=== PATIENT | female | born 1965 | race Two or more races ===

== ENCOUNTER 2016-12-22 07:52 | Emergency (ER) | payer OTHER ==
[2016-12-22] MEDS ORDERED: ALBUTEROL/IPRATROPIUM 2.5/0.5 MG 3 ML/EACH DOSE ONE (08:46)
--- NOTE | 2016-12-22 09:38 | RAD ---
CHEST 2 VIEWS HISTORY: Cough. Frontal and lateral chest radiographs dated 12/22/2016.. COMPARISON: None. FINDINGS: FOCAL AIRSPACE OPACITY: No gross airspace consolidation. PLEURAL EFFUSION: None. CARDIOMEDIASTINAL SILHOUETTE: Nonenlarged. PNEUMOTHORAX: None identified. OSSEOUS STRUCTURES: No grossly destructive lesions. IMPRESSION: No acute cardiopulmonary process noted.
[2016-12-22] MEDS ORDERED: IBUPROFEN 600 MG TABLET ONE (10:00)
== END 2016-12-22 10:09 | disposition home or self-care (01) ==
LOC: ED 07:52
DX: R05 Cough (principal); R07.89 Other chest pain; E11.9 Type 2 diabetes mellitus without complications; J45.909 Unspecified asthma, uncomplicated; Z79.84 Long term (current) use of oral hypoglycemic drugs; Z79.82 Long term (current) use of aspirin; Z79.51 Long term (current) use of inhaled steroids; Z79.899 Other long term (current) drug therapy
CPT/HCPCS: 71020; 94640; 99283 ×2; A9270